=== PATIENT | male | born 1970 | race Caucasian/White ===

== ENCOUNTER 2019-08-12 16:45 | Observation (INO) ==
[2019-08-12] MEDS ORDERED: HYDROmorphone 2 MG/ML VIAL IM ONE (17:04)
[2019-08-12] MEDS ORDERED: HYDROmorphone 2 MG/ML VIAL IV SCH (18:15)
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
[2019-08-12 18:21] LABS: Basophils # (Auto) 0.05 K/mcL (0.00-0.30); Basophils % (Auto) 0.4 % (0.0-2.0); Eosinophils # (Auto) 0.02 K/mcL (0.00-0.70); Eosinophils % (Auto) 0.1 % (0.0-7.0); Granulocytes % (Auto) 87.1 % (38.0-78.0); Hematocrit 45.2 % (40.1-51.0); Hemoglobin 15.9 g/dL (13.7-17.5); Lymphocytes # (Auto) 0.92 K/mcL (1.50-4.80); Lymphocytes % (Auto) 6.5 % (15.5-49.0); Mean Corpuscular HGB Conc 35.2 g/dL (31.0-36.0); Mean Platelet Volume 11.5 fL (7.4-10.4); Monocytes # (Auto) 0.84 K/mcL (0.10-0.90); Monocytes % (Auto) 5.9 % (1.0-12.0); Platelet Count 202 K/mcL (140-440); RBC 4.86 M/mcL (4.63-6.08); WBC 14.3 K/mcL (4.50-11.00)
[2019-08-12 18:27] LABS: Prothrombin Time 13.4 sec (11.9-14.5)
[2019-08-12 18:36] LABS: Chloride 100 mmol/L (96-108)
[2019-08-12 18:40] LABS: ALT/SGPT 39 U/l (0-40); AST/SGOT 36 U/l (0-37); Albumin 4.9 gm/dL (3.2-5.2); Albumin/Globulin Ratio 1.8 (1.0-2.3); Alkaline Phosphatase 66 U/L (39-117); Bilirubin,Total 0.6 mg/dL (0.0-1.0); Blood Urea Nitrogen 18 mg/dl (6-20); Carbon Dioxide 21 mmol/L (22-30); Globulin 2.8 gm/dL (2.2-3.7); Glomerular Filtration Rate 71; Glucose 108 mg/dL (70-105)
[2019-08-12] MEDS ORDERED: ONDANSETRON 4 MG/2 ML VIAL IV PRN (18:46)
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
--- NOTE | 2019-08-12 20:22 | XRay Report ---
CLINICAL INFORMATION: History of smoking - pre-op COMPARISON: None. TECHNIQUE: Portable chest FINDINGS: The heart size, mediastinum and pulmonary vessels are unremarkable. The lungs are clear. There are no effusions. The bones and soft tissues are within normal limits. IMPRESSION: Normal chest. Interpreted and Authenticated by: Samuel Elizabeth 08/12/19
[2019-08-12] MEDS: LACTATED RINGERS 1,000 ML IV SCH (21:11)
[2019-08-13] MEDS: LACTATED RINGERS 1,000 ML IV SCH ×4 (05:49→20:31)
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
--- NOTE | 2019-08-13 09:03 | Cat Scan Report ---
History: Fracture right lower leg TECHNIQUE: The right lower leg was imaged from the knee through the midfoot and axial plane at 1.25 mm intervals. Sagittal, coronal and 3-D reformatted images were created. The radiation exposure was limited using dose reduction technology. FINDINGS: The leg is encased in a plaster cast. There is an acute comminuted fracture in the proximal shaft of the fibula. There is a 4 mm step-off at the fracture site but there is very little angulation. The remainder the fibula is normal. Incidentally noted is mild osteoarthritis with spur formation in the knee There is a larger comminuted fracture in the distal tibia. This involves the distal third of the tibia. This extends into the ankle joint space. Fracture extends into the posterior malleolus. There is very little displacement of the fracture within the ankle joint. In the shaft of the tibia some of the fragments are significantly displaced. Along the posterior medial side there is one fragment which has flipped from side to side and the posterior cortical margin now abuts the medullary space. There is another fracture involving the lateral cuneiform. This is mildly comminuted but the fragments are in good alignment. The mid and hindfoot are otherwise normal. Patient has moderate subcutaneous edema in the lower portion of the leg extending down to the ankle joint. Very small joint effusion is seen in the ankle. IMPRESSION: Comminuted fracture in the distal third of the tibia which extends into the ankle joint. Mildly comminuted fracture in the proximal shaft of the fibula. Fractured lateral cuneiform Interpreted and Authenticated by: Alhaji Chiu 08/13/19
[2019-08-13 11:39] LABS: Appearance,Urine CLEAR; Bilirubin,Urine NEG (NEG); Color,Urine YELLOW; Culture Indicated,Urine NO; Glucose,Urine (UA) NEGATIVE (NEG); Ketones,Urine NEG (NEG); Leukocyte Esterase,Urine NEG /uL (NEG); Nitrate,Urine NEG (NEG); Protein,Urine NEG (NEG); Specific Gravity,Urine 1.016 (1.000-1.035); Urine Blood NEG mg/dL (<0.03); Urobilinogen,Urine NEG (NEG)
[2019-08-13] MEDS ORDERED: ceFAZolin 2 GM in DEXTROSE 5% IN WATER 50 ML IV SCH (13:15)
[2019-08-13] MEDS ORDERED: IPRATROPIUM/ALBUTEROL 3 ML AMPUL.NEB NEB ONE (14:45)
[2019-08-13] MEDS ORDERED: DEXAMETHASONE 10 MG/ML VIAL IV ONE (15:00)
[2019-08-13] MEDS ORDERED: KETAMINE 100 MG/ML ML IV ONE (15:00)
[2019-08-13] MEDS ORDERED: ONDANSETRON 4 MG/2 ML VIAL IV ONE (15:00)
[2019-08-13] MEDS ORDERED: fentaNYL 250 MCG/5 ML VIAL IV ONE (15:00)
[2019-08-13] MEDS ORDERED: MIDAZOLAM 5 MG/5 ML VIAL IV ONE (15:00)
[2019-08-13] MEDS ORDERED: KETOROLAC 30 MG/ML VIAL IV ONE (15:00)
[2019-08-13] MEDS ORDERED: PROPOFOL 200 MG/20 ML VIAL IV ONE (15:00)
[2019-08-13] MEDS ORDERED: LIDOCAINE HCL/PF 100 MG/5 ML SYRINGE IV ONE (15:00)
[2019-08-13] MEDS ORDERED: METHOCARBAMOL 1,000 MG/10 ML VIAL IV PRN (15:32)
[2019-08-13] MEDS ORDERED: ATROPINE SULFATE 0.4 MG/ML VIAL IV PRN (15:32)
[2019-08-13] MEDS ORDERED: ACETAMINOPHEN 1,000 MG/100 ML BOTTLE IV ONE (15:32)
[2019-08-13] MEDS ORDERED: ONDANSETRON 4 MG/2 ML VIAL IV PRN (15:32)
[2019-08-13] MEDS ORDERED: ePHEDrine 50 MG/ML AMPUL IV PRN (15:32)
[2019-08-13] MEDS ORDERED: diphenhydrAMINE 50 MG/ML VIAL IV PRN (15:32)
[2019-08-13] MEDS ORDERED: HYDROmorphone 2 MG/ML VIAL IV PRN (15:32)
[2019-08-13] MEDS ORDERED: IPRATROPIUM/ALBUTEROL 3 ML AMPUL.NEB NEB PRN (15:32)
[2019-08-13] MEDS ORDERED: FLUMAZENIL 0.1 MG/ML ML IV PRN (15:32)
[2019-08-13] MEDS ORDERED: NALOXONE HCL 0.4 MG/ML VIAL IV PRN (15:32)
[2019-08-13] MEDS ORDERED: METOPROLOL TARTRATE 5 MG/5 ML VIAL IV PRN (15:32)
--- NOTE | 2019-08-13 16:50 | Brief Operative Note ---
Date of procedure: 08/13/19 Pre-op diagnosis: Right tib/fib distal 1/3 fx Post-op diagnosis: same Procedure: right tib/fib Orig Grafts/Implants: Yes Anesthesia: GETA Complications: none Surgeon: Sae Smith Wood Processing Worker: Tavo Magallon Estimated blood loss (cc): 50 Tourniquet Time (Minutes): 70 Specimens Removed/Pathology: none sent Condition: stable Disposition: PACU
[2019-08-13] MEDS: MEPERIDINE 25 MG/ML SYRINGE IV PRN ×2 (17:15→17:23)
[2019-08-13] MEDS: fentaNYL 100 MCG/2 ML VIAL IV PRN ×3 (17:18→17:30)
--- NOTE | 2019-08-13 17:50 | XRay Report ---
HISTORY: Postop reduction of fracture distal left tibia FINDINGS: There is good alignment following open reduction internal fixation of the comminuted fracture involving the distal third of the tibia. There is a metal plate secured to the anterior medial side of the tibia using multiple transversely oriented screws. Fracture extends in the posterior malleolus. The ankle joint space is normal in width and alignment. There is also a spiral fracture in the proximal shaft of the fibula the alignment of the fracture proximal fibula has improved compared with the prereduction images. IMPRESSION: Good alignment following fixation of the fractured distal tibia Interpreted and Authenticated by: Alhaji Chiu 08/13/19
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
[2019-08-13] MEDS: oxyCODONE/APAP 5/325MG TABLET PO PRN (21:07)
[2019-08-13] MEDS: 0.9 % SODIUM CHLORIDE 10 ML SYRINGE IV SCH (23:17)
[2019-08-14] MEDS: oxyCODONE/APAP 5/325MG TABLET PO PRN ×2 (00:28→14:47)
[2019-08-14] MEDS: LACTATED RINGERS 1,000 ML IV SCH ×2 (02:37→16:30)
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
--- NOTE | 2019-08-14 07:46 | Operative Note ---
DATE OF OPERATION: 08/13/2019 PREOPERATIVE DIAGNOSIS: A 49-year-old with a right distal tibia-fibula fracture, displaced distal third. POSTOPERATIVE DIAGNOSIS: A 49-year-old with a right distal tibia-fibula fracture, displaced distal third. PROCEDURE: Open reduction and internal fixation with intra-articular extension with anterior medial plate and screws. SURGEON: Sae Smith M.D. EDUCATION INTERN: Tavo Magallon PA-C. The PA's assistance was required for the safe and efficient completion of the entire case. This provider's expertise and technical skill were required throughout the case. The PA assisted with preoperative coordination, intraoperative retraction, wound closure, dressing and splint application, as well as postoperative documentation and care coordination. ANESTHESIA: General LMA anesthesia. COMPLICATIONS: None. TOURNIQUET TIME: 70 minutes. ESTIMATED BLOOD LOSS: 100 mL. DESCRIPTION OF PROCEDURE: The patient was brought to the operating room and put to sleep with general LMA anesthesia. Once asleep, a timeout was performed. We confirmed the operative site as the right leg by initials, consent form, and x-rays. Once done, we then exsanguinated the leg with an Esmarch and inflated the tourniquet to 250 pounds of pressure. We made an anterior medial incision, exposing the fracture site. Some of the hematoma was removed. We then reduced the fracture using image. We placed an anterior medial plate from [employer] that fit very nicely. We then placed one screw above and below. We had to modify the plate slightly to make it fit perfectly. An anatomic reduction was achieved. We then temporarily fixed the screw and then we placed one interfrag screw through the fracture site. This gave excellent purchase at the fracture site. We irrigated thoroughly. We also placed bicortical locking screws proximal and bicortical screws distally, all of which were locking screws except for the interfrag nonlocking screw that was 30 mm to give compression to the fracture site. Next, 1 mL of bone graft at the fracture site and posteriorly in the comminuted area was injected after a thorough irrigation of the wound. We then confirmed the posterior lateral fragment of the articular surface was anatomically aligned and involved less than 20% of the joint space. With this finding, we then closed the skin with #1 Stratafix, 2-0 Vicryl, and airam. Sterile bandage was applied. The patient tolerated this well. We preserved the saphenous vein and nerve throughout the case. Images were taken throughout the case to confirm the reduction joint line looked excellent. ANDREW:ming Job ID: [id number] Doc ID: [id number] Sae Smith MD
[2019-08-14] MEDS: 0.9 % SODIUM CHLORIDE 10 ML SYRINGE IV SCH (11:02)
--- NOTE | 2019-08-24 10:29 | Discharge Summary ---
DATE OF ADMISSION: 08/12/2019 DATE OF DISCHARGE: 08/14/2019 DATE OF ADMISSION: 08/12/2019 DATE OF DISCHARGE: 08/14/2019 ADMITTING DIAGNOSIS: Right distal tibia-fibula fracture, displaced. DISCHARGE DIAGNOSIS: Right distal tibia-fibula fracture, displaced, status post open reduction internal fixation of both tibia and fibula. DISCHARGE CONDITION: Stable. CONSULTATIONS: None. PROCEDURE PERFORMED: The above-noted procedure was completed on the date of admission. The procedure went without complications. Following the procedure the patient was taken to recovery room in stable condition. HOSPITAL COURSE: The patient did very nicely his first postoperative night and was discharged the following day. He was given standard postoperative instructions, wound care recommendations, medication prescriptions, follow-up guidelines and was discharged in stable condition. BAP:ming Job ID: [id number] Doc ID: [id number] Tavo Magallon PA-C
== END 2019-08-14 14:50 | disposition home or self-care (01) ==
LOC: ED 16:45 → MEDSUR 16:45 → SUATTDRO 20:15 → MEDSUR 20:15
PROVIDERS: ADMIT Orthopaedic Surgery Orthopaedic Surgery of the Spine; ATTEND Orthopaedic Surgery